=== PATIENT | female | born 1960 | race Caucasian/White ===

== ENCOUNTER → 2020-12-14 10:24 | Outpatient (BNVA) | payer OTHER, SELFPAY | PROVIDERS: PCP Internal Medicine; Referring Provider Internal Medicine; Visit Provider Internal Medicine Gastroenterology ==

== ENCOUNTER 2020-12-22 07:53 | Day surgery (SDC) | payer OTHER, SELFPAY ==
[2020-12-22 08:10] VITALS: BMI 32.9
[2020-12-22 08:15] VITALS: BP 136/82; PULSE 74; RESP 16; TEMP 36.6; O2SAT 99
--- NOTE | 2020-12-22 08:29 | HO.ANESPROP2 ---
HPI - Anesthesia Eval Consult details Narrative: 60 yo female patient for EGD PMFSH Active Problems Active Problems: All Active Problems (Updated 12/22/20 @ 08:03 by Kathy Carvajal RN) Epigastric abdominal pain (Acute) Past Medical History Medical History (Updated 12/22/20 @ 08:41 by Sharon Mcfadden MD) Elevated cholesterol Fibromuscular dysplasia GERD (gastroesophageal reflux disease) IBS (irritable bowel syndrome) Ischemic colitis Vertigo Family History Family history of problems with anesthesia: No Surgical History Surgical History (Updated 12/22/20 @ 08:05 by Kathy Carvajal RN) History of ankle surgery History of carpal tunnel release Hx of arthroscopic knee surgery Hx of cervical discectomy Hx of colonoscopy Hx of esophagogastroduodenoscopy Hx of toe surgery History of Problems with Anesthesia: No Social History Social History Patient Tobacco Use Status: Former Tobacco user Quit Date: 2005 Use of substances other than those prescribed or required for medical reasons: No Are you DNR?: No Advance Directives: No Advance Directives Information Provided: Yes Meds Allergies Allergy/AdvReac Type Severity Reaction Status Date / Time penicillamine Allergy Unknown Rash Verified 12/22/20 08:06 bactrim Allergy Unknown Nausea Uncoded 12/22/20 08:06 erythromycin Allergy Unknown Nausea Uncoded 12/22/20 08:06 NSAIDS Allergy Unknown Gastrointestinal Uncoded 12/22/20 08:06 Upset Active Medications: Current Medications Lactated Ringer's (Lr) 1,000 mls @ 100 mls/hr IVCONT .Q10H [facility] Home Medications Medication Instructions Recorded Confirmed Last Taken Type dicyclomine 10 mg capsule 1 cap PO Q6H PRN 12/22/20 12/22/20 Unknown History mometasone 0.1 % topical cream applic TOPICAL 12/22/20 Unknown History omeprazole 20 mg capsule,delayed 1 cap PO DAILY 12/22/20 12/22/20 Unknown History release rosuvastatin 40 mg tablet 1 tab PO DAILY 12/22/20 12/22/20 Unknown History trazodone 50 mg tablet 0.5 tab PO BEDTIME 12/22/20 12/22/20 Unknown History Exam Exam Date and Time: December 22, 2020 0829 Height,Weight and Vital Signs: Height 5 ft 3 in Weight 84.368 kg Last Vital Signs Temp 97.8 F 12/22/20 08:15 Pulse 74 12/22/20 08:15 Resp 16 12/22/20 08:15 BP 136/82 12/22/20 08:15 Pulse Ox 99 12/22/20 08:15 Airway Mallampati Class: II TM Dist: >3cm Neck ROM: Full Loose/Missing/Broken Teeth: No Heart: RRR Lungs: CTAB Assessment and Plan Assessment Anesthesia Assessment: Anesthesia Plan Discussed and Chart Reviewed Final Anesthetic Review Family History of Problems with Anesthesia: No History of Problems with Anesthesia: No NPO: Yes ASA Class: II Final Preanesthetic Review: No Changes in Pt Med Stat, Meds/Allgs Chart Reviewed, Consent Obtained/Reviewed and Anes Risks/Benef Reviewed Patient Risk: Low Procedure Risk: Low Assessment/Block/Sedation in SS: Assess/Block/Sedation-SS Anesthetic Plan Anesthetic Plan: MAC: Disposition: Standard PACU
[2020-12-22] MEDS: Lactated Ringers 1,000 ML 100 ML IVCONT (08:50)
--- NOTE | 2020-12-22 09:04 | P.BOP_ITS ---
Brief Operative Note Date of Service: 12/22/20 Pre-op diagnosis: abdominal pain Post-op diagnosis: same Procedure: see op note Surgeon: Brandi Carmichael MD Anesthesia: MAC Was an Handicrafts Teacher used for this Procedure?: No Estimated blood loss (mL): 0 Condition: stable Disposition: PACU
--- NOTE | 2020-12-22 09:04 | MHC.SHP ---
Pre-Procedural Eval Section A Date of Service: 12/22/20 The patient is an INPATIENT: No The History & Physical has been completed within 30 days and I have reviewed it.: Yes Section B Chief Complaint: epigastric pain Allergies: Allergies Allergy/AdvReac Type Severity Reaction Status Date / Time penicillamine Allergy Unknown Rash Verified 12/22/20 08:06 bactrim Allergy Unknown Nausea Uncoded 12/22/20 08:06 erythromycin Allergy Unknown Nausea Uncoded 12/22/20 08:06 NSAIDS Allergy Unknown Gastrointestinal Uncoded 12/22/20 08:06 Upset Plan Diagnosis/Plan: Unchanged I have reviewed the history and physical and performed a pertinent physical examination on my patient. No changes have occurred unless specified.
--- NOTE | 2020-12-22 09:04 | W.PM.OPN ---
Operative Note Operative Note Date of Service: 12/22/20 Narrative: Procedure Description: EGD FLEXIBLE TRANSORAL UPPER GASTROINTESTINAL ENDOSCOPY UPPER ENDOSCOPY Consent: Indications for the procedure and potential complications of bleeding, perforation, reaction to medications and missed diagnosis were discussed with the patient and informed consent was obtained. Instrument: Olympus GIF H 190 J mid size upper endoscope Monitoring: Vital signs and clinical assessment, continuous EKG monitoring, Pulse oximetry, Carbon Dioxide monitoring and blood pressure monitoring were done throughout the procedure. Procedure: The patient was placed in the left lateral decubitis position and pre-procedure medications were administered and a bite block was placed. The endoscope was inserted into the mouth and advanced under direct vision to the third part of duodenum. A careful inspection was made as the upper endoscope was withdrawn including a retroflexed examination of the proximal stomach; Findings and interventions are described below. Findings: Larynx:normal Esophagus: GE junction at 35 cm, diaphragm hiatus at 38 cm, mild esophagitis, 3 cm sliding hiatal hernia noted. Within the sac were 2 polyps, one was inflammed and red. They both looked like fundic gland polyps but measured 10-13 mm so removed with cold snare. Stomach: Patchy gastric erythema with atrophy and scarring. Biopsies were obtained. Grade 2 flap valve on retroflexed examination of the cardia. In the lesser curve there was a 6-8 mm adenomatous appearing polyp which was removed with forceps. Several fundic gland type polyps noted in upper stomach. Duodenum: Mild bulbar duodenitis, bx taken Intervention: Biopsies as noted above, cold snare polypectomy Impression/Findings: gastric polyps gastritis duodenitis hiatla hernia esophagitis PLAN: consider increasing or changing PPI If h pylori pos then treat
[2020-12-22 09:55] VITALS: BP 92/50; PULSE 74; RESP 16; TEMP 36.1; O2SAT 93
[2020-12-22 10:10] VITALS: BP 116/68; PULSE 74; RESP 16; TEMP 36.1; O2SAT 96
[2020-12-28 20:22] LABS: Lactase 29.5 (15.0-45.5); Maltase 199.5 (100.0-224.4); Palatinase 16.3 (5.0-26.3); Sucrase 60.1 (25.0-69.9)
== END 2020-12-22 10:46 | disposition home or self-care (01) ==
PROVIDERS: PCP Internal Medicine; Visit Provider Internal Medicine Gastroenterology
PROC: 0DJ08ZZ Inspection of Upper Intestinal Tract, Via Natural or Artificial Opening Endoscopic (ICD-10-PCS; CPT 43235; principal; 2020-12-22 09:10)
DX: R10.13 Epigastric pain (principal); K20.90 Esophagitis, unspecified without bleeding; K29.70 Gastritis, unspecified, without bleeding; K31.7 Polyp of stomach and duodenum; K29.80 Duodenitis without bleeding; K44.9 Diaphragmatic hernia without obstruction or gangrene; Z88.0 Allergy status to penicillin
CPT/HCPCS: 43251; 43239; 36415; 82657; 88305; J3010

== ENCOUNTER → 2021-01-04 08:46 | Outpatient (BNVA) | payer OTHER, SELFPAY | PROVIDERS: PCP Internal Medicine; Visit Provider Internal Medicine Gastroenterology ==

== ENCOUNTER → 2021-02-15 12:37 | Outpatient (BNVA) | payer OTHER, SELFPAY | PROVIDERS: PCP Internal Medicine; Visit Provider Internal Medicine Gastroenterology ==

== ENCOUNTER 2021-03-23 11:17 | Day surgery (SDC) | payer OTHER, SELFPAY ==
[2021-03-23 11:42] VITALS: BP 150/82; PULSE 73; RESP 18; TEMP 36.1; O2SAT 100; BMI 32.8
--- NOTE | 2021-03-23 11:55 | MHC.SHP ---
Pre-Procedural Eval Section A Date of Service: 03/23/21 Section B Chief Complaint: rectal bleeding Relevant Family History (Specify if Yes): No Relevant Social History: None Present Medications: see Short Stay Collaborative assessment Medical History: Significant History (Elevated cholesterol Fibromuscular dysplasia GERD (gastroesophageal reflux disease) IBS (irritable bowel syndrome) Ischemic colitis Vertigo) History of Previous Operations: Relevant previous surgery/procedure and date(s) (History of ankle surgery History of carpal tunnel release Hx of arthroscopic knee surgery Hx of cervical discectomy Hx of colonoscopy Hx of esophagogastroduodenoscopy Hx of toe surgery) Allergies: Allergies Allergy/AdvReac Type Severity Reaction Status Date / Time penicillamine Allergy Unknown Rash Verified 02/15/21 13:02 bactrim Allergy Unknown Nausea Uncoded 02/15/21 13:02 erythromycin Allergy Unknown Nausea Uncoded 02/15/21 13:02 NSAIDS Allergy Unknown Gastrointestinal Uncoded 02/15/21 13:02 Upset Review of Systems Sugical H&P ROS: Negative: Constitution, Cardiovascular, Respiratory, Neurological, Psychiatric, Hem-Onc, Allergic/Immunologic, Gastrointestinal, Genitourinary, Musculoskeletal, Integumentary, Endocrine and Eyes/Ears/Nose/Throat Exam Surgical H&P Exam: Normal: HEENT, Normal: Heart, Normal: Lungs, Normal: Extremities, Normal: Abdomen, Normal: Skin and Normal: Neurological Plan Diagnosis/Plan: Unchanged I have reviewed the history and physical and performed a pertinent physical examination on my patient. No changes have occurred unless specified.
--- NOTE | 2021-03-23 12:56 | HO.ANESPROP2 ---
[facility] Active Problems Active Problems: All Active Problems (Updated 01/04/21 @ 09:36 by Brandi Carmichael MD) Altered bowel habits (Acute) Epigastric abdominal pain (Acute) Past Medical History Medical History Elevated cholesterol Fibromuscular dysplasia GERD (gastroesophageal reflux disease) IBS (irritable bowel syndrome) Ischemic colitis Vertigo Family History Family History (Updated 02/15/21 @ 13:04 by MALU Talley) Mother Diabetes HTN (hypertension) Stroke Father Diabetes Heart disease Family history of problems with anesthesia: No Surgical History Surgical History History of ankle surgery History of carpal tunnel release Hx of arthroscopic knee surgery Hx of cervical discectomy Hx of colonoscopy Hx of esophagogastroduodenoscopy Hx of toe surgery History of Problems with Anesthesia: No Social History Social History Patient Tobacco Use Status: Former Tobacco user Quit Date: 2005 Use of substances other than those prescribed or required for medical reasons: No Have you been hit, kicked, punched, or otherwise hurt by someone within the past year? If so, by whom?: No Are you DNR?: No Advance Directives: No Advance Directives Information Provided: No Nutrition Risks: No Nutritional Risk Meds Allergies Allergy/AdvReac Type Severity Reaction Status Date / Time penicillamine Allergy Unknown Rash Verified 02/15/21 13:02 bactrim Allergy Unknown Nausea Uncoded 02/15/21 13:02 erythromycin Allergy Unknown Nausea Uncoded 02/15/21 13:02 NSAIDS Allergy Unknown Gastrointestinal Uncoded 02/15/21 13:02 Upset Home Medications Medication Instructions Recorded Confirmed Last Taken Type dicyclomine 10 mg capsule 1 cap PO Q6H PRN 12/22/20 12/22/20 Unknown History mometasone 0.1 % topical cream applic TOPICAL 12/22/20 Unknown History rosuvastatin 40 mg tablet 1 tab PO DAILY 12/22/20 12/22/20 Unknown History trazodone 50 mg tablet 0.5 tab PO BEDTIME 12/22/20 12/22/20 Unknown History Exam Exam Date and Time: March 23, 2021 1256 Height,Weight and Vital Signs: Height 5 ft 3 in Weight 83.915 kg Last Vital Signs Temp 97 F 03/23/21 11:42 Pulse 73 03/23/21 11:42 Resp 18 03/23/21 11:42 BP 150/82 H 03/23/21 11:42 Pulse Ox 100 03/23/21 11:42 Airway Mallampati Class: II TM Dist: >3cm Neck ROM: Full Assessment and Plan Assessment Anesthesia Assessment: Anesthesia Plan Discussed and Chart Reviewed Final Anesthetic Review Family History of Problems with Anesthesia: No History of Problems with Anesthesia: No NPO: Yes ASA Class: II Final Preanesthetic Review: No Changes in Pt Med Stat, Meds/Allgs Chart Reviewed, Consent Obtained/Reviewed and Anes Risks/Benef Reviewed Patient Risk: Intermediate Procedure Risk: Low Anesthetic Plan Anesthetic Plan: MAC: Disposition: Standard PACU
--- NOTE | 2021-03-23 13:36 | PM.OP ---
Brief Operative Note Date of Service: 03/23/21 Pre-op diagnosis: rectal bleeding Post-op diagnosis: same Procedure: see op note Surgeon: Brandi Carmichael MD Anesthesia: MAC Was an Water Conservation Specialist used for this Procedure?: No Estimated blood loss (mL): 0 Condition: stable Disposition: PACU
--- NOTE | 2021-03-23 13:37 | W.PM.OPN ---
Operative Note Operative Note Date of Service: 03/23/21 Narrative: Operative Information Procedure Description: Colonoscopy COLONOSCOPY Instrument: Olympus variable stiffness adult scope 190L Colonoscopy Monitoring: Vital signs and clinical assessment, continuous EKG monitoring, Pulse oximetry, Carbon Dioxide monitoring and blood pressure monitoring were done throughout the procedure. Colon withdrawal time was 13 minutes. Procedure: The patient was placed in the left lateral decubitis position and pre-procedure medications were administered. After a digital rectal examination of the ano-rectum, the video colonoscope was inserted into the rectum and advanced through the colon to the cecum/TI. The colonoscope was slowly withdrawn in a retrograde panoramic fashion and the colon mucosa was carefully examined including a retroflexed view of the rectum. Findings and interventions are described below. Procedure Difficulty: difficult due to very tight and narrowed sigmoid, patient put supine which helped to get to cecum Findings: Terminal Ileum-not intubated Cecum:normal Ascending Colon: x 2 sessile polyps 10-12 mm. one removed with forceps and the other with cold snare. Transverse Colon - x 1 sessile polyp 8-10 mm removed with cold snare, not retrieved Descending Colon:normal Sigmoid Colon: severe diverticulosis with narrowed colon and mucosal hypertrophy Rectum: Retroflexion with small inflammed internal hemorrhoids, grade II Anorectum - internal hemorrhoids seen at anal verge Colon preparation: [place] Bowel Preparation Scale Right colon; 2 Transverse colon: 3 Left colon; 2 (0 = Unprepared colon segment with mucosa not seen due to solid stool that cannot be cleared. 1 = Portion of mucosa of the colon segment seen, but other areas of the colon segment not well seen due to staining, residual stool and/or opaque liquid. 2 = Minor amount of residual staining, small fragments of stool and/or opaque liquid, but mucosa of colon segment seen well. 3 = Entire mucosa of colon segment seen well with no residual staining, small fragments of stool or opaque liquid) Impression and Post Procedure Diagnosis: polyps internal hemorrhoids diverticular disease Plan: High fiber diet leaflet Avoid straining at stool, epsom salts and sitz bath, anusol supps or cream Repeat Colonoscopy in 3-5 years or earlier if clinically indicated Above findings were reviewed with the patient and relevant handouts were provided if indicated.
[2021-03-23 13:47] VITALS: BP 99/56; PULSE 75; RESP 16; TEMP 36.3; O2SAT 100
[2021-03-23 14:02] VITALS: BP 109/66; PULSE 75; RESP 16; O2SAT 98
[2021-03-23 14:17] VITALS: BP 124/70; PULSE 79; RESP 16; TEMP 36.3; O2SAT 99
== END 2021-03-23 14:53 | disposition home or self-care (01) ==
PROVIDERS: PCP Internal Medicine; Visit Provider Internal Medicine Gastroenterology
PROC: 0DJD8ZZ Inspection of Lower Intestinal Tract, Via Natural or Artificial Opening Endoscopic (ICD-10-PCS; CPT 45378; principal; 2021-03-23 12:30)
DX: K62.5 Hemorrhage of anus and rectum (principal); D12.2 Benign neoplasm of ascending colon; K57.30 Diverticulosis of large intestine without perforation or abscess without bleeding; K64.1 Second degree hemorrhoids; K31.84 Gastroparesis; K21.9 Gastro-esophageal reflux disease without esophagitis; K58.2 Mixed irritable bowel syndrome; K55.9 Vascular disorder of intestine, unspecified; I77.3 Arterial fibromuscular dysplasia; E78.5 Hyperlipidemia, unspecified; Z88.8 Allergy status to other drugs, medicaments and biological substances; Z88.1 Allergy status to other antibiotic agents; E78.00 Pure hypercholesterolemia, unspecified; R42 Dizziness and giddiness; Z87.891 Personal history of nicotine dependence
CPT/HCPCS: 45385; 45380; 88305

== ENCOUNTER 2021-04-01 13:18 | Outpatient (REF) | payer OTHER, SELFPAY ==
[2021-04-01 13:33] LABS: MANUAL DIFF FLAG NO
[2021-04-01 13:56] LABS: Basophils Absolute Auto 0.1 X10*3/uL (0.0-0.2); Basophils Percent Auto 0.8 % (0-2); Eosinophils Absolute Auto 0.1 X10*3/uL (0.0-0.4); Eosinophils Percent Auto 0.9 % (0-4); Hematocrit 41.7 % (37.0-47.0); Hemoglobin 13.9 g/dl (12.0-16.0); Imm Gran Abs Auto 0.01 X10*3/uL (0.00-0.03); Imm Gran Pct Auto 0.2 % (0.0-0.4); Lymphocytes Absolute Auto 2.6 X10*3/uL (1.2-4.9); Lymphocytes Percent Auto 38.5 % (20-40); Mean Corpuscular HGB Conc 33.3 g/dl (31.0-35.0); Mean Corpuscular Hemoglobin 31.2 pg (27.0-33.0); Mean Corpuscular Volume 93.5 fL (80.0-98.0); Mean Platelet Volume 9.8 fL (9.4-12.3); Monocytes Absolute Auto 0.6 X10*3/uL (0.1-1.2); Neutrophils Absolute Auto 3.4 x10*3/uL (2.0-8.3); Neutrophils Percent Auto 50.6 % (45-73); Platelet Count 214 X10*3/uL (160-400); Red Blood Count 4.46 X10*6/uL (4.20-5.50); Red Cell Distribution Width 12.8 % (11.0-16.0); White Blood Count 6.6 X10*3/uL (4.8-10.8)
[2021-04-01 14:20] LABS: Alanine Aminotransferase 29 U/L (0-31); Albumin Level 4.4 g/dL (3.5-5.0); Alkaline Phosphatase 75 U/L (39-117); Anion Gap 13 (12-20); Aspartate Amino Transferase 22 U/L (5-31); Bilirubin Total 0.6 mg/dL (0.0-1.0); Blood Urea Nitrogen 14 mg/dL (9-16); C Reactive Protein 0.09 mg/dL (< or = 0.50); Calcium 10.5 mg/dL (8.4-10.2); Carbon Dioxide 27 mmol/L (22-29); Chloride 106 mmol/L (96-108); Estimated Glomerular Filt Rate 60; Glucose Random 118 mg/dL (60-115); Potassium 4.5 mmol/L (3.3-5.1); Sodium 141 mmol/L (135-145)
== END 2021-04-01 13:19 | disposition home or self-care (01) ==
LOC: HO.LAB 13:18
PROVIDERS: PCP Internal Medicine; Visit Provider Internal Medicine Gastroenterology
DX: R10.13 Epigastric pain (principal); R19.4 Change in bowel habit; K75.81 Nonalcoholic steatohepatitis (NASH)
CPT/HCPCS: 36415; 80053; 85025; 86140

== ENCOUNTER → 2021-05-13 10:26 | Outpatient (BNVA) | payer OTHER, SELFPAY | PROVIDERS: PCP Internal Medicine; Visit Provider Internal Medicine Gastroenterology ==

== ENCOUNTER 2022-04-06 11:24 | Day surgery (SDC) | payer OTHER, SELFPAY ==
--- NOTE | 2022-04-05 13:46 | HO.ANESPROP2 ---
Documented by User: Suzette Melo NP 04/05/22 13:50 HPI - Anesthesia Eval Consult details Narrative: 61yo F for Upper Endoscopy PMFSH Active Problems Active Problems: All Active Problems (Updated 03/31/22 @ 08:56 by Brandi Carmichael MD) Epigastric abdominal pain (Acute) Altered bowel habits (Acute) High calcium levels (Acute) Lower abdominal pain (Acute) Incontinence of feces (Acute) Past Medical History Medical History Elevated cholesterol Fibromuscular dysplasia GERD (gastroesophageal reflux disease) IBS (irritable bowel syndrome) Ischemic colitis Vertigo Family History Family History Mother Diabetes HTN (hypertension) Stroke Father Diabetes Heart disease Family history of problems with anesthesia: No Surgical History Surgical History (Updated 04/03/22 @ 15:38 by Tuyet Brown RN) History of ankle surgery History of carpal tunnel release Hx of arthroscopic knee surgery Hx of cervical discectomy Hx of colonoscopy Hx of esophagogastroduodenoscopy Hx of toe surgery History of Problems with Anesthesia: No Social History Social History Patient Tobacco Use Status: Former Tobacco user Quit Date: 2005 Are you DNR?: No Advance Directives: No Advance Directives Information Provided: Yes Nutrition Risks: No Nutritional Risk Meds Allergies Allergy/AdvReac Type Severity Reaction Status Date / Time penicillamine Allergy Unknown Rash Verified 04/03/22 15:34 bactrim Allergy Unknown Nausea Uncoded 04/03/22 15:34 erythromycin Allergy Unknown Nausea Uncoded 04/03/22 15:34 NSAIDS Allergy Unknown Gastrointestinal Uncoded 04/03/22 15:34 Upset Home Medications Medication Instructions Recorded Confirmed Last Taken Type rosuvastatin 40 mg tablet 1 tab PO DAILY 12/22/20 04/03/22 Unknown History trazodone 50 mg tablet 0.5 tab PO BEDTIME 12/22/20 04/03/22 Unknown History triamcinolone acetonide 0.1 % dental 10/21/21 Unknown History dental paste Exam Exam Date and Time: April 05, 2022 1346 Assessment and Plan Assessment Anesthesia Assessment: Chart Reviewed Final Anesthetic Review Family History of Problems with Anesthesia: No History of Problems with Anesthesia: No Documented by User: Melanie Dacosta MD 04/06/22 11:45 PMFSH Past Medical History Medical History Elevated cholesterol Fibromuscular dysplasia GERD (gastroesophageal reflux disease) IBS (irritable bowel syndrome) Ischemic colitis Vertigo Family History Family History Mother Diabetes HTN (hypertension) Stroke Father Diabetes Heart disease Surgical History Surgical History (Updated 04/03/22 @ 15:38 by Tuyet Brown RN) History of ankle surgery History of carpal tunnel release Hx of arthroscopic knee surgery Hx of cervical discectomy Hx of colonoscopy Hx of esophagogastroduodenoscopy Hx of toe surgery Social History Social History Patient Tobacco Use Status: Former Tobacco user Quit Date: 2005 Are you DNR?: No Advance Directives: No Advance Directives Information Provided: Yes Nutrition Risks: No Nutritional Risk Meds Allergies Allergy/AdvReac Type Severity Reaction Status Date / Time penicillamine Allergy Unknown Rash Verified 04/03/22 15:34 bactrim Allergy Unknown Nausea Uncoded 04/03/22 15:34 erythromycin Allergy Unknown Nausea Uncoded 04/03/22 15:34 NSAIDS Allergy Unknown Gastrointestinal Uncoded 04/03/22 15:34 Upset Home Medications Medication Instructions Recorded Confirmed Last Taken Type rosuvastatin 40 mg tablet 1 tab PO DAILY 12/22/20 04/03/22 Unknown History trazodone 50 mg tablet 0.5 tab PO BEDTIME 12/22/20 04/03/22 Unknown History triamcinolone acetonide 0.1 % dental 10/21/21 Unknown History dental paste Exam Airway Mallampati Class: II TM Dist: >3cm Neck ROM: Full Heart: rr Lungs: cta Assessment and Plan Assessment Anesthesia Assessment: Anesthesia Plan Discussed Final Anesthetic Review NPO: Yes ASA Class: II Final Preanesthetic Review: No Changes in Pt Med Stat, Meds/Allgs Chart Reviewed and Consent Obtained/Reviewed Patient Risk: Low Procedure Risk: Low Anesthetic Plan Anesthetic Plan: MAC: Disposition: Standard PACU
[2022-04-06 10:17] VITALS: BMI 28.0
[2022-04-06 11:28] VITALS: BP 123/65; PULSE 67; RESP 18; TEMP 36.6; O2SAT 98
[2022-04-06] MEDS: Lactated Ringers 1,000 ML 100 ML IVCONT (11:56)
--- NOTE | 2022-04-06 11:56 | MHC.SHP ---
Pre-Procedural Eval Section A Date of Service: 04/06/22 Section B Chief Complaint: stomach polyps Details of Present Illness: hx of hyperplastic stomach polyps Relevant Family History (Specify if Yes): No Relevant Social History: None Present Medications: see Short Stay Collaborative assessment Medical History: Significant History (Elevated cholesterol Fibromuscular dysplasia GERD (gastroesophageal reflux disease) IBS (irritable bowel syndrome) Ischemic colitis Vertigo) History of Previous Operations: Relevant previous surgery/procedure and date(s) ( History of ankle surgery History of carpal tunnel release Hx of arthroscopic knee surgery Hx of cervical discectomy Hx of colonoscopy Hx of esophagogastroduodenoscopy Hx of toe surgery) Allergies: Allergies Allergy/AdvReac Type Severity Reaction Status Date / Time penicillamine Allergy Unknown Rash Verified 04/03/22 15:34 bactrim Allergy Unknown Nausea Uncoded 04/03/22 15:34 erythromycin Allergy Unknown Nausea Uncoded 04/03/22 15:34 NSAIDS Allergy Unknown Gastrointestinal Uncoded 04/03/22 15:34 Upset Review of Systems Sugical H&P ROS: Negative: Constitution, Cardiovascular, Respiratory, Neurological, Psychiatric, Hem-Onc, Allergic/Immunologic, Gastrointestinal, Genitourinary, Musculoskeletal, Integumentary, Endocrine and Eyes/Ears/Nose/Throat Exam Surgical H&P Exam: Normal: HEENT, Normal: Heart, Normal: Lungs, Normal: Extremities, Normal: Abdomen, Normal: Skin and Normal: Neurological Plan Diagnosis/Plan: Unchanged I have reviewed the history and physical and performed a pertinent physical examination on my patient. No changes have occurred unless specified. Time Spent With Patient Time: Total time managing care of this patient today ____ minutes.
--- NOTE | 2022-04-06 11:58 | W.PM.OPN ---
Operative Note Operative Note Date of Service: 04/06/22 Narrative: Procedure Description: EGD Indication: hx of hyperplastic polyps Anesthesia: MAC FLEXIBLE TRANSORAL UPPER GASTROINTESTINAL ENDOSCOPY UPPER ENDOSCOPY Consent: Indications for the procedure and potential complications of bleeding, perforation, reaction to medications and missed diagnosis were discussed with the patient and informed consent was obtained. Instrument: Olympus GIF H 190 J mid size upper endoscope Monitoring: Vital signs and clinical assessment, continuous EKG monitoring, Pulse oximetry, Carbon Dioxide monitoring and blood pressure monitoring were done throughout the procedure. Procedure: The patient was placed in the left lateral decubitis position and pre-procedure medications were administered and a bite block was placed. The endoscope was inserted into the mouth and advanced under direct vision to the third part of duodenum. A careful inspection was made as the upper endoscope was withdrawn including a retroflexed examination of the proximal stomach; Findings and interventions are described below. Findings: Larynx:normal Esophagus: GE junction at 35? cm, diaphragm hiatus at 38 cm, consistent with 3 cm sliding hiatal hernia. Stomach: Patchy gastric erythema with atrophy and scarring in the cardia area. Biopsies were obtained. Grade 2 flap valve on retroflexed examination of the cardia. Several fundic gland polyps noted, few were removed by cold snare including one which appeared inflammed. These measured 12-14 mm and were retrieved with the net Duodenum: normal Intervention: Biopsies as noted above, cold snare polypectomy Impression/Findings: gastric polyps mild gastritis hiatla hernia PLAN: Appearances improved since last procedure, if polyps are benign then can do EGD prn in future
[2022-04-06 12:45] VITALS: BP 109/54; PULSE 78; RESP 16; TEMP 36.9; O2SAT 100
[2022-04-06 13:00] VITALS: BP 111/59; PULSE 61; RESP 16; TEMP 36.9; O2SAT 100
== END 2022-04-06 13:41 | disposition home or self-care (01) ==
PROVIDERS: PCP Internal Medicine; Visit Provider Internal Medicine Gastroenterology
PROC: 0DJ08ZZ Inspection of Upper Intestinal Tract, Via Natural or Artificial Opening Endoscopic (ICD-10-PCS; CPT 43235; principal; 2022-04-06 12:40)
DX: K31.7 Polyp of stomach and duodenum (principal); K29.60 Other gastritis without bleeding; K44.9 Diaphragmatic hernia without obstruction or gangrene; K21.9 Gastro-esophageal reflux disease without esophagitis; K58.9 Irritable bowel syndrome, unspecified; K55.9 Vascular disorder of intestine, unspecified; I77.3 Arterial fibromuscular dysplasia; E78.00 Pure hypercholesterolemia, unspecified; R42 Dizziness and giddiness; Z79.899 Other long term (current) drug therapy; Z88.1 Allergy status to other antibiotic agents; Z88.8 Allergy status to other drugs, medicaments and biological substances; Z87.891 Personal history of nicotine dependence
CPT/HCPCS: 43251; 43239; 88305; 88342

== ENCOUNTER → 2022-05-08 15:12 | Outpatient (BNVA) | payer OTHER, SELFPAY | PROVIDERS: PCP Internal Medicine; Visit Provider Internal Medicine Gastroenterology | DX: Z13.89 Encounter for screening for other disorder (principal) ==

== ENCOUNTER → 2022-08-04 10:26 | Outpatient (BNVA) | payer OTHER, SELFPAY | PROVIDERS: PCP Internal Medicine; Visit Provider Internal Medicine Gastroenterology ==